=== PATIENT | female | born 1980 | race Caucasian/White ===

== ENCOUNTER 2022-09-02 14:45 | Outpatient (CLI) | payer OTHER, SELFPAY ==
[2022-09-02 21:55] LABS: Albumin* 4.6 g/dL (3.3-5.0)
[2022-09-02 21:56] LABS: Chloride* 102 mmol/L (96-114); Potassium* 3.8 mmol/L (3.6-5.1); Sodium* 141 mmol/L (135-149)
[2022-09-02 21:58] LABS: Bilirubin Total* 0.5 mg/dL (0.1-1.5); Carbon Dioxide* 28 mmol/L (20-32); Cholesterol* 238 mg/dL (90-199); Creatinine* 0.7 mg/dL (0.5-1.5); Estimated Glomerular Filt Rate 111 ml/min
[2022-09-02 21:59] LABS: Alanine Aminotransferase* 32 U/L (4-35); Alkaline Phosphatase* 50 U/L (40-150); Aspartate Amino Transferase* 31 U/L (12-35); Blood Urea Nitrogen* 13 mg/dL (5-24); Calcium* 10.2 mg/dL (8.4-10.6); Glucose* 95 mg/dL (60-115); Total Protein* 7.6 g/dL (6.0-8.3); Triglycerides* 173 mg/dL (40-149)
[2022-09-02 22:00] LABS: HDL Cholesterol* 90 mg/dL (>=50); LDL Cholesterol Calculated 113 mg/dL (<100)
[2022-09-02 22:37] LABS: Hepatitis C Virus Antibody* Negative (Negative)
== END 2022-09-02 14:46 | disposition home or self-care (01) ==
PROVIDERS: PCP Family Medicine; Visit Provider Family Medicine
DX: Z00.00 Encounter for general adult medical examination without abnormal findings (principal); I10 Essential (primary) hypertension; Z13.6 Encounter for screening for cardiovascular disorders; Z11.59 Encounter for screening for other viral diseases
CPT/HCPCS: 80053; 80061; 86803

== ENCOUNTER 2023-02-16 09:09 | Outpatient (CLI) | payer OTHER, SELFPAY | END 2023-02-16 09:10 | disposition home or self-care (01) | PROVIDERS: PCP Family Medicine; Visit Provider Family Medicine | DX: N91.2 Amenorrhea, unspecified (principal) | CPT/HCPCS: 83001; 84146; 84443 ==

== ENCOUNTER 2023-11-14 10:06 | Outpatient (CLI) | payer OTHER, SELFPAY | END 2023-11-14 10:07 | disposition home or self-care (01) | PROVIDERS: PCP Family Medicine; Visit Provider Family Medicine | DX: I10 Essential (primary) hypertension (principal); Z86.39 Personal history of other endocrine, nutritional and metabolic disease; Z13.220 Encounter for screening for lipoid disorders; Z13.21 Encounter for screening for nutritional disorder | CPT/HCPCS: 80053; 80061; 82043; 82306; 82570 ==

== ENCOUNTER 2024-02-02 08:49 | Outpatient (CLI) | payer OTHER, SELFPAY ==
--- NOTE | 2024-02-02 09:15 | CRLHL7_ITS ---
For Patients: As a result of the Century Cures Act, medical imaging exams and procedure reports are released immediately into your electronic medical record. You may view this report before your referring provider. If you have questions, please contact your health care provider. BILATERAL SCREENING MAMMOGRAM WITH COMPUTER-AIDED DETECTION AND TOMOSYNTHESIS TECHNIQUE: CC and MLO views were obtained. These mammographic images have been obtained using full-field digital technique. These mammographic images were interpreted with the benefit of computer-aided detection. Breast Tomosynthesis was used in this interpretation. COMPARISON FILM: 12/02/22, 07/19/21, 05/08/20. FINDINGS: There are scattered areas of fibroglandular density. IMPRESSION: There is no radiographic evidence for malignancy. ASSESSMENT: BI-RADS Category 1: Negative RECOMMENDATION: Routine screening mammogram in 1 year. A lay language report of this examination will be provided to the patient. Prem Lau M.D. Diagnostic Radiologist [email or web address] SP/Dictated by: Prem Lau MD @ 02/05/2024 11:58:00 AM (Electronically Signed)
== END 2024-02-02 08:50 | disposition home or self-care (01) ==
LOC: MAMMO 08:50
PROVIDERS: PCP Family Medicine; Visit Provider Family Medicine
DX: Z12.31 Encounter for screening mammogram for malignant neoplasm of breast (principal)
CPT/HCPCS: 77063; 77067

== ENCOUNTER 2024-11-28 10:46 | Outpatient (CLI) | payer OTHER, SELFPAY | END 2024-11-28 10:47 | disposition home or self-care (01) | PROVIDERS: PCP Family Medicine; Visit Provider Family Medicine | DX: Z00.01 Encounter for general adult medical examination with abnormal findings (principal); I10 Essential (primary) hypertension; E55.9 Vitamin D deficiency, unspecified; N91.3 Primary oligomenorrhea | CPT/HCPCS: 80053; 80061; 82043; 82306; 82570; 83001 ==

== ENCOUNTER 2025-06-04 08:29 | Outpatient (CLI) | payer OTHER, SELFPAY ==
--- NOTE | 2025-06-04 08:45 | CRLHL7_ITS ---
For Patients: As a result of the Century Cures Act, medical imaging exams and procedure reports are released immediately into your electronic medical record. You may view this report before your referring provider. If you have questions, please contact your health care provider. INDICATION: BILATERAL SCREENING MAMMOGRAM, ASYMPTOMATIC 44 Y/O FEMALE COMPARISON: 02/02/2024, 12/02/2022, 07/19/2021 TECHNIQUE: Digital mammogram in CC and MLO projections including computer-aided detection (CAD) and tomosynthesis. BREAST COMPOSITION: The breasts are almost entirely fatty. FINDINGS: No suspicious findings. ASSESSMENT: BI-RADS 1 Negative RECOMMENDATION: Annual screening mammogram. A lay language report of this examination will be provided to the patient. Dictated by: Prem Lau MD @ 06/04/2025 10:15:50 (Electronically Signed)
== END 2025-06-04 08:30 | disposition home or self-care (01) ==
LOC: MAMMO 08:30
PROVIDERS: PCP Family Medicine; Visit Provider Family Medicine
DX: Z12.31 Encounter for screening mammogram for malignant neoplasm of breast (principal)
CPT/HCPCS: 77063; 77067